=== PATIENT | male | born 1985 | race Caucasian/White ===

== ENCOUNTER → 2020-02-18 15:53 | Outpatient (BNVA) | payer MEDICAID, SELFPAY | PROVIDERS: PCP Internal Medicine; Referring Provider Internal Medicine; Visit Provider Surgery | DX: M67.431 Ganglion, right wrist (principal) | CPT/HCPCS: 99212 ==

== ENCOUNTER 2020-03-12 09:13 | Day surgery (SDC) | payer MEDICAID, SELFPAY ==
[2020-03-08 11:31] VITALS: BMI 34.4
--- NOTE | 2020-03-10 14:51 | HO.ANESPROP2 ---
Documented by User: Tamy Lal 03/10/20 14:52 HPI - Anesthesia Eval Consult details Narrative: 35yo M for Excision of Ganglion Wrist Cyst PMFSH Past Medical History Medical History Ganglion cyst of dorsum of right wrist Family History Family History Mother History of breast cancer Social History Social History Alcohol intake: current Alcohol intake frequency: holidays/special occasions only Smoking Status: Never smoker Use of substances other than those prescribed or required for medical reasons: No Advance Directives: No Advance Directives Information Provided: No Advance Directives on File: No Meds Allergies Allergy/AdvReac Type Severity Reaction Status Date / Time No Known Allergies Allergy Verified 02/18/20 15:59 Home Medications Medication Instructions Recorded Confirmed Type acetaminophen 500 mg tablet 500 mg PO Q6H PRN 02/18/20 03/08/20 History Exam Exam Date and Time: March 10, 2020 1451 Height,Weight and Vital Signs: Height 5 ft 7 in Weight 99.79 kg Assessment and Plan Assessment Anesthesia Assessment: Chart Reviewed Documented by User: Sayra Sherman 03/12/20 10:40 HPI - Anesthesia Eval Consult details Narrative: 35 yo male patient for excision of recurrent ganglion cyst Right wrist PMFSH Past Medical History Medical History Ganglion cyst of dorsum of right wrist Family History Family History Mother History of breast cancer Family history of problems with anesthesia: No Surgical History History of Problems with Anesthesia: No Social History Social History Alcohol intake: current Alcohol intake frequency: holidays/special occasions only Smoking Status: Never smoker Use of substances other than those prescribed or required for medical reasons: No Advance Directives: No Advance Directives Information Provided: No Advance Directives on File: No Meds Allergies Allergy/AdvReac Type Severity Reaction Status Date / Time No Known Allergies Allergy Verified 02/18/20 15:59 Home Medications Medication Instructions Recorded Confirmed Type acetaminophen 500 mg tablet 500 mg PO Q6H PRN 02/18/20 03/08/20 History Exam Height,Weight and Vital Signs: Vital Signs Temp Pulse Resp BP Pulse Ox 03/12/20 09:37 98.5 F 73 16 124/72 98 Airway Mallampati Class: II TM Dist: >3cm Neck ROM: Full Heart: RRR Lungs: CTAB. Shallow breathing. Assessment and Plan Assessment Anesthesia Assessment: Anesthesia Plan Discussed and Chart Reviewed Final Anesthetic Review NPO: Yes ASA Class: I Final Preanesthetic Review: No Changes in Pt Med Stat, Meds/Allgs Chart Reviewed, Consent Obtained/Reviewed and Anes Risks/Benef Reviewed Patient Risk: Low Procedure Risk: Low Anesthetic Plan Anesthetic Plan: MAC: Disposition: Standard PACU
[2020-03-12 09:37] VITALS: BP 124/72; PULSE 73; RESP 16; TEMP 36.9; O2SAT 98
[2020-03-12] MEDS: Lactated Ringers 1,000 ML 100 ML IVCONT (09:53)
--- NOTE | 2020-03-12 10:30 | MHC.SHP ---
Pre-Procedural Eval Section B Chief Complaint: Ganglion Cyst of Dorsum of Right Wrist Allergies: Allergies Allergy/AdvReac Type Severity Reaction Status Date / Time No Known Allergies Allergy Verified 02/18/20 15:59 Plan Patient has been examined and remains a candidate for the planned procedure
[2020-03-12] MEDS: ceFAZolin Sodium/Dextrose,Iso 2 GM/50 ML PIGGYBACK IV (10:32)
[2020-03-12 11:17] VITALS: BP 118/60; PULSE 77; RESP 16; TEMP 36.3; O2SAT 95
[2020-03-12 11:32] VITALS: BP 123/72; PULSE 68; RESP 16; O2SAT 98
[2020-03-12 11:47] VITALS: BP 129/82; PULSE 70; RESP 18; O2SAT 99
--- NOTE | 2020-03-12 11:48 | OP_ITS ---
SURGEON: Carlos Manzano MD INDICATIONS: The patient is a 35-year-old male with note of a ganglion cyst on the right wrist at the dorsum, which had been aspirated multiple times in the office.. He finally decided to proceed with excision. He understood technique of excision. He is aware of the risks, benefits, and alternatives. He had given consent. PREOPERATIVE DIAGNOSIS: Ganglion cyst, right wrist. POSTOPERATIVE DIAGNOSIS: Ganglion cyst, right wrist. PROCEDURE PERFORMED: Excision of ganglion cyst, right wrist. ESTIMATED BLOOD LOSS: COMPLICATIONS: ANESTHESIA: ASSISTANTS: SPECIMENS: DESCRIPTION OF PROCEDURE: He was brought to the operating room, placed in supine position under monitored anesthesia care. The area of the wrist was prepped and draped in usual sterile fashion. Lidocaine 1% was used for local anesthesia. I made a transverse incision in the skin overlying the ganglion cyst using blade #15, it was carried down to full thickness skin and subcutaneous fat using electrocautery. I proceeded to then do sharp dissection of the rest of the subcutaneous layer with fine scissors until we were able to visualize the ganglion cyst. The ganglion cyst was about 2 cm in diameter. We proceeded to gently dissect down to the stalk and used the scissors to excise this cyst entire capsule. Gelatinous material was noted within the cyst. The capsule was sent as specimen. I irrigated the area of excision. I closed the pedicle with the [id number] Dexon 3-0 stitch. I closed the skin with the full-thickness nylon 3-0 interrupted sutures. Dressings as well as a Kamille roll and Bj wrap was applied on the wrist. The patient tolerated procedure well. There were no complications noted. Initial and final counts of sponges and instruments were correct. Estimated blood loss was about 2 mL. The patient was extubated without difficulty and transferred to the recovery room with stable vital signs. MD ROSALBA Hoffman/BLANCA / [id number] [facility] HOSPITALFrederic
== END 2020-03-12 12:08 | disposition home or self-care (01) ==
PROVIDERS: PCP Internal Medicine; Visit Provider Surgery
PROC: (CPT 25112; principal; 2020-03-12 11:10)
DX: M67.431 Ganglion, right wrist (principal)
CPT/HCPCS: 25112; 88304; J0690; J2250; J3010

== ENCOUNTER → 2020-03-22 13:15 | Outpatient (BNVA) | payer MEDICAID, SELFPAY | PROVIDERS: PCP Internal Medicine; Visit Provider Surgery | DX: Z48.817 Encounter for surgical aftercare following surgery on the skin and subcutaneous tissue (principal); Z48.02 Encounter for removal of sutures; Z87.2 Personal history of diseases of the skin and subcutaneous tissue | CPT/HCPCS: 99212 ==

== ENCOUNTER 2020-06-14 00:56 | Emergency (ER) | payer MEDICAID, SELFPAY ==
[2020-06-14 01:44] VITALS: BP 114/72; PULSE 94; RESP 16; TEMP 36.8; O2SAT 97; BMI 32.8
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
[2020-06-14] MEDS: Tetracaine HCl/PF 0.5% Oph Sol 4 ML DROPS 3 DROP EYE-BOTH (02:54)
[2020-06-14] MEDS: Fluorescein Sodium STRIP 1 STRIP EYE-BOTH (02:54)
== END 2020-06-14 04:30 | disposition home or self-care (01) ==
PROVIDERS: Emergency Provider Emergency Medicine; PCP Internal Medicine
DX: T26.12XA Burn of cornea and conjunctival sac, left eye, initial encounter (principal); T26.11XA Burn of cornea and conjunctival sac, right eye, initial encounter; X08.8XXA Exposure to other specified smoke, fire and flames, initial encounter; Y93.89 Activity, other specified; Y92.9 Unspecified place or not applicable; Y99.9 Unspecified external cause status
CPT/HCPCS: 99283; 99284

== ENCOUNTER → 2021-11-30 14:03 | Outpatient (BNVA) | payer SELFPAY | PROVIDERS: PCP Internal Medicine; Visit Provider Physician Assistant Medical | DX: Z02.79 Encounter for issue of other medical certificate (principal) ==

== ENCOUNTER 2021-12-02 17:23 | Emergency (ER) | payer MEDICAID, SELFPAY ==
[2021-12-02 18:04] VITALS: BP 112/73; PULSE 65; RESP 16; TEMP 36; O2SAT 96; BMI 33.8
--- NOTE | 2021-12-02 18:16 | ED.GENADULT ---
HPI - General Adult General Chief complaint: General Medical Stated complaint: stepped on needle Time Seen by Provider: 12/02/21 18:14 Source: patient Mode of arrival: ambulatory Limitations: no limitations History of Present Illness HPI narrative: 36-year-old healthy male presents to the ER for evaluation of an accidental needle stick. Patient was working outside in a job lot when he stepped on a hypodermic needle that went through his shoe and poked the bottom of his foot. There was a small amount of blood. The needle was taken out intact. Patient has no residual pain or injury from the stick. His wanted him to come get evaluated for possible post exposure prophylaxis. He is also not up-to-date on his tetanus shot. complaint: Needlestick Onset (ago): hour(s) Location: left and lower extremity Severity: mild Severity scale (1-10): 1 Quality: aching Pain Consistency: now resolved Relieving factors: none Exacerbating factors: none Associated symptoms: denies other symptoms Treatments prior to arrival: none Related Data Home Medications Medication Instructions Recorded Confirmed acetaminophen 500 mg tablet 500 mg PO Q6H PRN Pain 02/18/20 03/08/20 (Tylenol Extra Strength) Previous Rx's Medication Instructions Recorded ibuprofen 600 mg tablet 600 mg PO Q6H PRN pain #30 tabs 03/12/20 oxycodone-acetaminophen 5 mg-325 1 - 2 tab PO Q4-6H PRN pain #30 03/12/20 mg tablet (Percocet) tabs erythromycin 5 mg/gram (0.5 %) eye 0.5 inch ophthalmic (eye) BID #1 g 06/14/20 ointment levofloxacin 500 mg tablet 500 mg PO DAILY #3 tabs 12/02/21 Allergies Allergy/AdvReac Type Severity Reaction Status Date / Time No Known Allergies Allergy Verified 06/14/20 01:44 Review of Systems Review of Systems: Constitutional: No Fever, No Chills Cardiovascular: No Chest Pain, No SOB Gastrointestinal: No Nausea, No Vomiting Musculoskeletal: No joint pain, No Myalgias Skin: No Skin Lesions, No rash, +puncture wound Neuro: No Weakness, No Numbness Psych: +Anxiety/Panic, No Depression Heme/Lymph: No Bruising, No Lymphadenopathy PMFSH Past Medical History Medical History Ganglion cyst of dorsum of right wrist Surgical History History of surgical removal of ganglion cyst Family History Family History Mother History of breast cancer Social History Social History Alcohol intake: current Alcohol intake frequency: holidays/special occasions only Physical Exam ED Vital Signs: Vital Signs - 24 hr 12/02/21 18:04 Temperature 96.8 F Pulse Rate 65 Respiratory Rate 16 Blood Pressure 112/73 Pulse Oximetry 96 Oxygen Delivery Method Room Air BMI result Body Mass Index 33.8 Appearance: Alert. Oriented X3. No acute distress. HEENT: normal inspection CVS: Normal heart rate and rhythm. Pulses normal. Respiratory: No respiratory distress. Lungs are clear Skin: Skin warm and dry. Normal skin color. Normal skin turgor. No rashes. Extremities: Plantar aspect of the left foot with a tiny, punctate, a needlestick present in the middle of the foot. No surrounding erythema, no bleeding. Nontender. Neuro: Oriented X 3. No motor deficit. No sensory deficit. Steady gait. Course Course Course Narrative: 36-year-old male presents to the ER for evaluation of a needlestick. The needle was outside in a lot, went through his shoe and punctured his skin. This is considered a low risk exposure. We discussed at length the benefits and risks postexposure prophylaxis. Patient would like to defer at this time. Tdap was given he will follow-up with primary care doctor. Will give 3 days Levaquin given stick went through the shoe to help prevent infection. Area was cleaned with H2O2. Stable for discharge home. Critical Care Time Critical Care Time Critical Care Time: No Discharge Plan Discharge Clinical Impression: Accidental hypodermic needlestick injury Patient Disposition: Home, Self-Care Instructions: Needle Stick Injuries (ED) Additional Instructions: Take prescribed prophylactic antibiotic as directed. Monitor for signs of infection. Follow-up with your primary care doctor If you change your mind and decide to start prophylaxis antiviral medications, the decision should be made within 72 hours of the needlestick. Prescriptions: New levofloxacin 500 mg tablet 500 mg PO DAILY Qty: 3 0RF No Action erythromycin 5 mg/gram (0.5 %) ointment 0.5 inch ophthalmic (eye) BID Qty: 1 0RF ibuprofen 600 mg tablet 600 mg PO Q6H PRN (Reason: pain) Qty: 30 0RF oxycodone-acetaminophen [Percocet] 5-325 mg tablet 1 - 2 tab PO Q4-6H PRN (Reason: pain) Qty: 30 0RF acetaminophen [Tylenol Extra Strength] 500 mg tablet 500 mg PO Q6H PRN (Reason: Pain) Referrals: Aggie Roth MD [Primary Care Provider] -
[2021-12-02] MEDS: Diphth,Pertus(ACell),Tet Adult 0.5 ML SYRINGE IM (18:40)
== END 2021-12-02 18:46 | disposition home or self-care (01) ==
LOC: HO.ED 18:46
PROVIDERS: Emergency Provider Emergency Medicine Emergency Medical Services; PCP Internal Medicine
DX: Z77.21 Contact with and (suspected) exposure to potentially hazardous body fluids (principal)
CPT/HCPCS: 90471; 90715; 99282; 99284

== ENCOUNTER → 2024-01-03 15:18 | Outpatient (BNVA) | payer SELFPAY | PROVIDERS: PCP Internal Medicine; Visit Provider Physician Assistant Medical | DX: Z02.79 Encounter for issue of other medical certificate (principal) ==